=== PATIENT | male | born 1980 | race Caucasian/White ===

== ENCOUNTER 2024-05-09 16:02 | Emergency (ER) | payer OTHER ==
[~2024-05-09] VITALS: Ht 172.7 cm; Wt 135.0 kg
[2024-05-09] MEDS ORDERED: LOSA50TA28 (16:39)
[2024-05-09] MEDS ORDERED: PRED20TA (16:39)
[2024-05-09] MEDS ORDERED: GABA-1171 (16:39)
[2024-05-09] MEDS ORDERED: CELE0.09 (16:39)
[2024-05-09] MEDS ORDERED: HYDR-4571 (16:39)
[2024-05-09] MEDS ORDERED: BACL10TA2 PO (16:39)
[2024-05-09 19:08] VITALS: BP 151/85; TEMP 98.6; O2SAT 97
== END 2024-05-09 19:14 | disposition home or self-care (01) ==
LOC: M ED 16:02
DX: M48.061 Spinal stenosis, lumbar region without neurogenic claudication (principal); M54.16 Radiculopathy, lumbar region; M51.36 Other intervertebral disc degeneration, lumbar region

== ENCOUNTER → 2025-04-25 | Outpatient (CLI) | payer OTHER ==
[~2025-04-25] MED LIST: BACL10TA2 PO; CELE0.09; GABA-1171; HYDR-4571; LOSA50TA28; PRED20TA
== END ==
LOC: M PLARAD 09:02
PROVIDERS: ATTEND Nurse Practitioner Family
DX: D44.0 Neoplasm of uncertain behavior of thyroid gland (principal)
CPT/HCPCS: 78815; A9552